=== PATIENT | male | born 1965 | race Caucasian/White ===

== ENCOUNTER 2020-08-24 05:54 | Day surgery (SDC) | payer OTHER, BC ==
[2020-08-16 13:18] VITALS: BMI 35.9
[2020-08-24] MEDS ORDERED: LIDOCAINE 1%/EPI 1:100000 (20 ML MULTI DOSE VIAL) ONE (06:44)
[2020-08-24] MEDS ORDERED: POVIDONE-IODINE 5% OPHTHALMIC PREP 30 ML SOLUTION ONE (06:44)
[2020-08-24] MEDS ORDERED: TETRACAINE 0.5% OPHTH SOLN 2 ML BOTTLE ONE (06:44)
[2020-08-24] MEDS ORDERED: ERYTHROMYCIN 0.5% OPHTHALMIC OINTMENT 3.5 GM TUBE ONE (06:44)
[2020-08-24] MEDS ORDERED: SEVOFLURANE 250 ML BTL ONE (07:25)
[2020-08-24] MEDS ORDERED: SUCCINYLCHOLINE CHLORIDE 200 MG/10 ML SYRINGE ONE (07:29)
[2020-08-24] MEDS ORDERED: PROPOFOL 20 ML ONE ×2 (07:29)
[2020-08-24] MEDS ORDERED: MIDAZOLAM HCL 2 MG/2 ML SINGLE DOSE VIAL ONE (07:29)
[2020-08-24] MEDS ORDERED: ceFAZolin SODIUM 1 GM VIAL ONE (07:53)
[2020-08-24] MEDS ORDERED: KETOROLAC TROMETHAMINE 30 MG/1 ML VIAL ONE (07:53)
[2020-08-24] MEDS ORDERED: ONDANSETRON 4 MG/2 ML VIAL ONE ×2 (07:53→09:18)
[2020-08-24] MEDS ORDERED: DEXAMETHASONE SOD PHOSPHATE 4 MG/1 ML VIAL ONE (07:53)
[2020-08-24] MEDS ORDERED: LIDOCAINE HCL/PF 2% SDV 5ML VIAL ONE (07:53)
[2020-08-24] MEDS ORDERED: oxyCODONE HCL 5 MG TABLET PO PRN ×2 (08:52)
[2020-08-24] MEDS ORDERED: PROMETHAZINE HCL 25 MG/1 ML VIAL IVPUSH PRN (08:52)
[2020-08-24] MEDS ORDERED: ONDANSETRON 4 MG/2 ML VIAL IVPUSH PRN (08:52)
[2020-08-24 10:21] VITALS: TEMP 98.2
[2020-08-24 10:47] VITALS: BP 130/70; PULSE 73
== END 2020-08-24 11:05 | disposition home or self-care (01) ==
LOC: FASU 05:54
PROVIDERS: ATTEND Ophthalmology
PROC: 08SP0ZZ Reposition Left Upper Eyelid, Open Approach (ICD-10-PCS; principal; 2020-08-24 07:56)
DX: H02.402 Unspecified ptosis of left eyelid (principal); H02.89 Other specified disorders of eyelid
CPT/HCPCS: 82962; 94760